=== PATIENT | female | born 1990 | race American Indian/Alaskan Native ===

== ENCOUNTER 2019-10-22 21:07 | Emergency (ER) | payer SELFPAY ==
[2019-10-22 22:20] VITALS: BP 111/64
[2019-10-22 23:08] LABS: Hematocrit 37.5 % (30.3-42.9); Hemoglobin 12.8 gm/dl (10.1-14.3); Mean Corpuscular HGB Conc 34 % (30-34); Mean Corpuscular Volume 95 fl (79-97); Platelet Count 227 K/mm3 (140-440); Red Blood Count 3.94 M/mm3 (3.65-5.03); Red Cell Distribution Width 13.2 % (13.2-15.2)
[2019-10-22 23:12] LABS: Bacteria,Urine 1+ /HPF (Negative); Bilirubin,Urine NEG (Negative); Blood,Urine LG (Negative); Color,Urine Yellow (Yellow); Mucus,Urine 1+ /HPF; Protein,Urine <15 mg/dL mg/dL (Negative); Urobilinogen,Urine < 2.0 mg/dL (<2.0)
[2019-10-22 23:35] LABS: RBC,Urine > 182.0 /HPF (0.0-6.0)
--- NOTE | 2019-10-22 23:49 | Ultrasound Report ---
EXAMINATION: Obstetrical Ultrasound INDICATION: Vaginal bleeding during early . COMPARISON: None FINDINGS: The uterus is normal in size measuring 7.1 x 4.0 x 5.2 cm. No intrauterine is visualized. T he endometrial thickness measures a maximum of 9 mm. The right adnexal region was not well visualized secondary to adjacent bowel. The left adnexa contain s a hypoechoic circumscribed masslike area measuring 1.6 x 1.2 cm. There is no associated vascularity . No free pelvic fluid is seen. IMPRESSION: 1. No evidence of intrauterine . Diagnostic considerations include failed or failing pregna ncy, too early to visualize or less likely ectopic . Close clinical and laboratory follow-up is recommended. 2. Hypoechoic smoothly marginated 1.6 cm structure associated with the left adnexal region. This is f avored to represent a mildly complicated cyst. An ultrasound in 4-6 weeks could be performed for foll ow-up. Signer Name: Dede Barton MD Signed: 10/22/2019 11:44 PM Workstation Name: [id number]
--- NOTE | 2019-10-23 00:41 | Emergency Department Report ---
ED Female HPI - General Chief complaint: Vaginal Bleeding Stated complaint: BLEEDING WHILE Time Seen by Provider: 10/23/19 00:30 Source: patient Mode of arrival: Ambulatory Limitations: No Limitations - History of Present Illness Initial comments: 29-year-old -[place] Citizen female presents to the emergency room reporting that she believes she is 7 weeks with abdominal cramps and vaginal bleeding that started this morning. Patient states that 2 weeks ago she took a home test and it was positive. Patient states this morning she started spotting and then it got heavier about 6 PM. Patient states she is gone through 4-5 pantiliners with no clots. Patient reports her last menstrual period was 09/10/2019. Patient is 3 para 0 with 2 abortions. Patient does admit to pelvic cramping. Has no known drug allergies currently takes no medications on a daily basis has no past medical history. MD Complaint: vaginal bleeding -: This morning Location: suprapubic Severity: moderate Severity scale (0 -10): 5 Quality: cramping Consistency: intermittent Improves with: none Worsens with: none Are you Now?: Yes Last Menstrual Period: 09/10/19 EDC: 06/16/20 - Related Data Allergies Allergy/AdvReac Type Severity Reaction Status Date / Time No Known Allergies Allergy Verified 08/29/15 17:13 ED Review of Systems ROS: Stated complaint: BLEEDING WHILE Other details as noted in HPI Comment: All other systems reviewed and negative ED Past Medical Hx - Past Medical History Previous Medical History?: No - Surgical History Past Surgical History?: Yes Additional Surgical History: D&C - Social History Smoking Status: Never Smoker Substance Use Type: None ED Physical Exam - General Limitations: No Limitations General appearance: alert, in no apparent distress - Head Head exam: Present: atraumatic, normocephalic - Eye Eye exam: Present: normal appearance - ENT ENT exam: Present: mucous membranes moist - Neck Neck exam: Present: normal inspection, full ROM - GI/Abdominal GI/Abdominal exam: Present: soft. Absent: distended, tenderness, guarding - Extremities Exam Extremities exam: Present: normal inspection, full ROM - Back Exam Back exam: Present: normal inspection, full ROM - Neurological Exam Neurological exam: Present: alert, oriented X3, normal gait - Psychiatric Psychiatric exam: Present: normal affect, normal mood - Skin Skin exam: Present: warm, dry, intact, normal color. Absent: rash ED Course Vital Signs 10/22/19 22:18 Temperature 98.2 F Pulse Rate 60 Respiratory 18 Rate Blood Pressure 111/64 [Left] O2 Sat by Pulse 100 Oximetry ED Medical Decision Making - Lab Data Result diagrams: 10/22/19 22:26 - Radiology Data Radiology results: report reviewed [facility] [address] [place] [address] Ultrasound Report Signed Patient: JOSÉ MIGUEL PARKER MR#: [id number] : 1990 Acct:[id number] Age/Sex: 29 / F ADM Date: 10/22/19 Loc: ED Attending Dr: Ordering Physician: ED MD FILI Date of Service: 10/22/19 Procedure(s): US OB <= 14 weeks fetus Accession Number(s): [id number] cc: ED MD FILI EXAMINATION: Obstetrical Ultrasound INDICATION: Vaginal bleeding during early . COMPARISON: None FINDINGS: The uterus is normal in size measuring 7.1 x 4.0 x 5.2 cm. No intrauterine is visualized. The endometrial thickness measures a maximum of 9 mm. The right adnexal region was not well visualized secondary to adjacent bowel. The left adnexa contains a hypoechoic circumscribed masslike area measuring 1.6 x 1.2 cm. There is no associated vascularity. No free pelvic fluid is seen. IMPRESSION: 1. No evidence of intrauterine . Diagnostic considerations include failed or failing , too early to visualize or less likely ectopic . Close clinical and laboratory follow-up is recommended. 2. Hypoechoic smoothly marginated 1.6 cm structure associated with the left adnexal region. This is favored to represent a mildly complicated cyst. An ultrasound in 4-6 weeks could be performed for follow-up. Signer Name: Dede Barton MD Signed: 10/22/2019 11:44 PM Workstation Name: [id number] Transcribed By: EB Dictated By: Dede Barton MD Electronically Authenticated By: Dede Barton MD Signed Date/Time: 10/22/192343 DD/ 39 TD/TT: - Medical Decision Making 29-year-old -[place] Citizen female presents to the emergency room reporting that she believes she is 7 weeks with abdominal cramps and vaginal bleeding that started this morning. Patient states that 2 weeks ago she took a home test and it was positive. Patient states this morning she started spotting and then it got heavier about 6 PM. Patient states she is gone through 4-5 pantiliners with no clots. Patient reports her last menstrual period was 09/10/2019. Patient is 3 para 0 with 2 abortions. Patient does admit to pelvic cramping. Has no known drug allergies currently takes no medications on a daily basis has no past medical history. Discussed with patient that her hCG was 4 which is the cutoff for . Also discussed with patient her ultrasound shows no evidence of intrauterine . It also shows that there is a 1.6 cm structure associated with the l eft adnexa region that looks like a complicated cyst recommend ultrasound in 4 to 6 weeks and follow-up with an TRANSPORT TRUCK DRIVER. Critical care attestation.: If time is entered above; I have spent that time in minutes in the direct care of this critically ill patient, excluding procedure time. ED Disposition Clinical Impression: Menstrual period late, Adnexal cyst Disposition: DC-01 TO HOME OR SELFCARE Is pt being admited?: No Does the pt Need Aspirin: No Condition: Stable Instructions: Menstruation (ED) Additional Instructions: Ultrasound shows no evidence of intrauterine . Left adnexal complicated cyst. Recommend a follow-up ultrasound in 4 to 6 weeks with an TRANSPORT TRUCK DRIVER. Tylenol or ibuprofen for menstrual cramps. Referrals: PRIMARY CARE, [Primary Care Provider] - 3-5 Days [facility] [Provider Group] - 3-5 Days [facility] [Provider Group] - 3-5 Days [facility] [Provider Group] - 3-5 Days Forms: Work/School Release Form(ED)
[2019-10-23 02:23] LABS: Anisocytosis 1+; Basophils % (Manual) 0 % (0.0-1.8); Total Cells Counted 100
[2019-10-23 02:24] LABS: Platelet Estimate Consistent w Auto
== END 2019-10-23 00:55 | disposition home or self-care (01) ==
LOC: ED 21:07
DX: O34.81 Maternal care for other abnormalities of pelvic organs, first trimester (principal); N83.292 Other ovarian cyst, left side; Z3A.01 Less than 8 weeks gestation of pregnancy
CPT/HCPCS: 36415; 76801; 81001; 84702; 85007; 85025; 86900; 86901